=== PATIENT | female | born 1960 | race Caucasian/White ===

== ENCOUNTER 2024-05-03 07:36 | Emergency (ER) | payer OTHER, MEDICAID ==
[~2024-05-03] VITALS: Ht 162.6 cm; Wt 98.9 kg
[2024-05-03 08:30] LABS: Urine Bacteria FEW /hpf (None Seen); Urine Blood 2+ /uL (Negative); Urine Clarity Ex.Turbid (Clear); Urine Color Light-Brown (Yellow); Urine Hyaline Cast MOD /lpf (0 - 2); Urine Protein, UAD 2+ (Negative); Urine Specific Gravity 1.021 (1.001-1.035); Urine Urobilinogen Normal (Negative); Urine WBC 4586 /hpf (0 - 5); Urine WBC Clumps PRESENT /hpf (None Seen)
[2024-05-03] MEDS ORDERED: BACDST PO (09:38)
[2024-05-03 09:48] VITALS: BP 105/63; PULSE 95; RESP 16; TEMP 97.6; O2SAT 95
== END 2024-05-03 09:55 | disposition home or self-care (01) ==
LOC: ER 07:38
DX: N39.0 Urinary tract infection, site not specified (principal); M19.90 Unspecified osteoarthritis, unspecified site; Z98.890 Other specified postprocedural states
CPT/HCPCS: 81001